=== PATIENT | female | born 1950 | race African-American/Black ===

== ENCOUNTER → 2017-09-12 | Outpatient (CLI) | payer MEDICARE, OTHER ==
--- NOTE | 2017-09-16 11:36 | WOMENS IMAGING REPORT ---
EXAM DESCRIPTION: 3D SCREENING MAMMO BILAT COMPLETED DATE/TIME: 09/12/2017 3:32 pm REASON FOR STUDY: SCREENING MAMMO Z12.31 ENCNTR SCREEN MAMMOGRAM FOR MALIGNANT NEOPLASM OF SOLA COMPARISON: The patient's outside examination is not available at this reading. TECHNIQUE: Standard craniocaudal and mediolateral oblique views of each breast recorded using digita l acquisition and breast tomosynthesis. LIMITATIONS: None. FINDINGS: Findings present which are benign by mammographic criteria. No suspicious masses, calcifi cations or architectural distortion. Pertinent benign findings: Post surgical changes related to prior bilateral breast reduction surgery . Benign-appearing calcifications in the breast. Read with the assistance of CAD. .[facility] - R2 Cenova Version 1.3 .[facility] - R2 Cenova Version 1.3 .[facility] - R2 Cenova Version 2.4 .[facility] - R2 Cenova Version 2.4 .[facility] - R2 Mortgage Loan Specialist Version 9.2 Benign mammographic findings may include one or more of the following: Smooth masses, popcorn/rim/co arse calcifications, asymmetries, post-procedure changes, and lesions with long-standing stability. IMPRESSION: BENIGN MAMMOGRAPHIC FINDINGS. BIRADS 2 BREAST DENSITY: b. There are scattered areas of fibroglandular density. BIRAD: 2 BENIGN FINDING(S) RECOMMENDATION: RECOMMENDATION: ROUTINE SCREENING COMMENT: The patient has been notified of the results by letter per SA requirements. Additional no tification policies are in place for contacting patient with suspicious or incomplete findings. Quality ID #[id number]: The [employer] recommends an annual screening mammogram for women aged 40 years or over. This facility utilizes a reminder system to ensure that all patients receive reminder letters, and/or direct phone calls for appointments. This includes reminders for routine scr eening mammograms, diagnostic mammograms, or other Breast Imaging Interventions when appropriate. Th is patient will be placed in the appropriate reminder system. The [employer] (ACR) has developed recommendations for screening MRI of the breast s in certain patient populations, to be used in conjunction with mammography. Breast MRI surveillanc e may be appropriate for women with more than 20% lifetime risk of developing breast cancer as deter mined by genetic testing, significant family history of the disease, or history of mantle radiation f or Hodgkins Disease. ACR Practice Guidelines 2008. DBT Technology DBT is a type of tomographic mammography. With conventional mammography, overlapping breast tissue ma y make lesions difficult to detect, even with good compression. DBT uses an x-ray tube that rotates a round the breast, taking images at different angles. These images are then combined to create thin sl ices of the breast that the radiologist can view as a 3D reconstruction. The [employer] unit can perform full-field digital mammograms (2D imaging); or DBT (3D imaging); or both, in a combination mode that quickly performs both the mammogram and the tomosynthesis scan while the breast is still compressed. PQRS 6045F: Fluoroscopic imaging is not utilized for breast tomosynthesis. TECHNICAL DOCUMENTATION: FINDING NUMBER: (1) ASSESSMENT: (1) JOB ID: [id number] [employer]- All Rights Reserved Reading location - IP/workstation name: [email or web address]
== END ==
LOC: WI 14:36
PROVIDERS: ATTEND Obstetrics & Gynecology
DX: Z12.31 Encounter for screening mammogram for malignant neoplasm of breast (principal)
CPT/HCPCS: 77063; 77067

== ENCOUNTER → 2018-06-19 | Day surgery (SDC) | payer MEDICARE, OTHER ==
[~2018-06-19] MED LIST: BUPIVACAINE HCL 0.5 % INJ/PF 30 ML SDV ONE; LIDOCAINE 1% INJ-PF (10 MG/ML) 30 ML SDV ONE
--- NOTE | 2018-06-19 10:42 | Operative Report ---
PROCEDURE: 1. Right articular branch of femoral nerve radiofrequency denervation 2. Right articular branch of obturator nerve radiofrequency denervation Preoperative Diagnosis: Right osteoarthritis Hip Postoperative Diagnosis: Right osteoarthritis Hip DATE OF PROCEDURE: June 19, 2018 ANESTHESIA: Local anesthesia COMPLICATIONS: none reported PROCEDURE IN DETAIL: Hx/PE/meds/allergies/applicable labs reviewed. No changes and no contraindications were found. Full description of the procedure was provided including benefits as well as possible complications including transient increased pain, stomach irritation, mood alteration, transient weakness or parathesias as well as more serious nerve injury, bleeding, infection or allergic reaction. Informed consent was obtained and documented. The patient was brought to the procedure room and placed on the exam table in a comfortable supine position. The place for the needle placement was obtained by manual palpation with radiographic confirmation. The sterile field was prepared and sterile drapes. Local anesthesia superficial and deep was provided by local infiltration of 6 ml 1 % lidocaine. Using fluoroscopic guidance a 17g 150 mm radiofrequency needle with 4mm active tip was advanced to the anteromedial aspect of the extraarticular portion of the hip joint where the articular branch of the femoral nerve traverses until a bony endpoint is felt. Attempted aspiration yielded no blood. Motor testing was then performed with 2hz at 2 volts and no lower extremity motor stimulation was observed. 2 cc of .5 % marcaine was injected through the RF needle. A radiofrequency lesion of the articular branch of the femoral nerve was then performed at 80 degrees C for 2 min and 30 seconds. The needle was then withdrawn. A second needle was placed and using fluoroscopic confirmation with ULTRASOUND guidance the needle was advanced to the incisura of the acetabulum where the articular branch of the obturator nerve traverses until a bony endpoint was met. Attempted aspiration yielded no blood. Radiographs were made. Motor testing was then performed with 2hz at 2 volts and no lower extremity motor stimulation was observed. 2cc .5 % marcaine was injected through the RF needle. A radiofrequency lesion of the articular branch of the obturator nerve was then performed at 80 degrees C for 2 minutes and 30 seconds. The needle was then withdrawn. The patient tolerated the procedure well. After observation the patient was discharged with instructions and follow up. They were also provided contact information to call regarding any concerning symptoms or questions. IMPRESSION: 1. Successful radiofrequency ablations of the articular branches of the obturator and femoral nerves was performed. 2. Follow up in 1-2 weeks to assess the efficacy of the procedure. 3. Estimated Blood Loss: 0 4. Disposition: home
== END ==
LOC: RAD 10:33
PROVIDERS: ATTEND Family Medicine
DX: M16.11 Unilateral primary osteoarthritis, right hip (principal)
CPT/HCPCS: 64640 ×2; J3490 ×2

== ENCOUNTER → 2018-08-08 | Outpatient (CLI) | payer MEDICARE, OTHER | LOC: OD 09:43 | PROVIDERS: ATTEND Internal Medicine Nephrology | DX: N39.0 Urinary tract infection, site not specified (principal) | CPT/HCPCS: 87086; 87088; 87186 ==

== ENCOUNTER → 2018-10-02 | Outpatient (CLI) | payer MEDICARE, OTHER ==
--- NOTE | 2018-10-06 16:41 | WOMENS IMAGING REPORT ---
EXAM DESCRIPTION: BILAT DIAGNOSTIC MAMMO W/CAD; U/S BREAST UNILAT LIMITED COMPLETED DATE/TIME: 10/02/2018 12:39 pm; 10/02/2018 1:08 pm; 10/06/2018 8:45 am REASON FOR STUDY: N64.4 MASTODYNIA; RT BREAST PAIN,N64.4; LEFT BREAST U/S N64.4 MASTODYNIA COMPARISON: 2017 TECHNIQUE: Standard craniocaudal and mediolateral oblique views of each breast recorded using digita l acquisition and breast tomosynthesis. True lateral and cone compression views left breast. True lateral view right breast. LIMITATIONS: None. FINDINGS: RIGHT BREAST MASSES: No suspicious masses. CALCIFICATIONS: No new or suspicious calcifications. ARCHITECTURAL DISTORTION: None. DEVELOPING DENSITY: None. ASYMMETRY: None noted. OTHER: No other significant findings. LEFT BREAST MASSES: No suspicious masses. CALCIFICATIONS: No new or suspicious calcifications. ARCHITECTURAL DISTORTION: Architectural distortion compresses out. DEVELOPING DENSITY: None. ASYMMETRY: None noted. OTHER: No other significant finding. Read with the assistance of CAD: .[facility] - R2 Cenova Version 1.3 .[facility] Imaging - R2 Cenova Version 2.1 .[facility] Imaging - R2 Cenova Version 2.4 .[facility] - R2 Cenova Version 2.4 .[facility] - R2 Class C Truck Driver Version 9.2 Ultrasound of both breasts was performed. No significant abnormality in either breast. IMPRESSION: No evidence of malignancy. BREAST DENSITY: b. There are scattered areas of fibroglandular density. BIRAD: 2 Benign findings. RECOMMENDATION: RECOMMENDED FOLLOW UP: Birads 1 or 2: No breast imaging finding to explain the patie nt's presenting complaint. Further intervention should be based on the degree of clinical suspicion. SPECIFIC INTERVENTION/IMAGING/CONSULTATION RECOMMENDED:No additional intervention/ imaging/consultati on needed at this time. COMMUNICATION:The imaging findings were not discussed with the patient. Her referring provider has be en notified of the findings. COMMENT: The patient has been notified of the results by letter per MQSA requirements. Additional no tification policies are in place for contacting patient with suspicious or incomplete findings. Quality ID #225: The [employer] recommends an annual screening mammogram for women aged 40 years or over. This facility utilizes a reminder system to ensure that all patients receive reminder letters, and/or direct phone calls for appointments. This includes reminders for routine scr eening mammograms, diagnostic mammograms, or other Breast Imaging Interventions when appropriate. Th is patient will be placed in the appropriate reminder system. The [employer] (ACR) has developed recommendations for screening MRI of the breast s in certain patient populations, to be used in conjunction with mammography. Breast MRI surveillanc e may be appropriate for women with more than 20% lifetime risk of developing breast cancer as deter mined by genetic testing, significant family history of the disease, or history of mantle radiation f or Hodgkins Disease. ACR Practice Guidelines 2008. DBT Technology DBT is a type of tomographic mammography. With conventional mammography, overlapping breast tissue ma y make lesions difficult to detect, even with good compression. DBT uses an x-ray tube that rotates a round the breast, taking images at different angles. These images are then combined to create thin sl ices of the breast that the radiologist can view as a 3D reconstruction. The [employer] unit can perform full-field digital mammograms (2D imaging); or DBT (3D imaging); or both, in a combination mode that quickly performs both the mammogram and the tomosynthesis scan while the breast is still compressed. PQRS 6045F: Fluoroscopic imaging is not utilized for breast tomosynthesis. TECHNICAL DOCUMENTATION: FINDING NUMBER: (1) ASSESSMENT: (1) JOB ID: [id number] [employer]- All Rights Reserved Reading location - IP/workstation name: [email or web address]
--- NOTE | 2018-10-06 16:41 | WOMENS IMAGING REPORT ---
EXAM DESCRIPTION: BILAT DIAGNOSTIC MAMMO W/CAD; U/S BREAST UNILAT LIMITED COMPLETED DATE/TIME: 10/02/2018 12:39 pm; 10/02/2018 1:08 pm; 10/06/2018 8:45 am REASON FOR STUDY: N64.4 MASTODYNIA; RT BREAST PAIN,N64.4; LEFT BREAST U/S N64.4 MASTODYNIA COMPARISON: 2017 TECHNIQUE: Standard craniocaudal and mediolateral oblique views of each breast recorded using digita l acquisition and breast tomosynthesis. True lateral and cone compression views left breast. True lateral view right breast. LIMITATIONS: None. FINDINGS: RIGHT BREAST MASSES: No suspicious masses. CALCIFICATIONS: No new or suspicious calcifications. ARCHITECTURAL DISTORTION: None. DEVELOPING DENSITY: None. ASYMMETRY: None noted. OTHER: No other significant findings. LEFT BREAST MASSES: No suspicious masses. CALCIFICATIONS: No new or suspicious calcifications. ARCHITECTURAL DISTORTION: Architectural distortion compresses out. DEVELOPING DENSITY: None. ASYMMETRY: None noted. OTHER: No other significant finding. Read with the assistance of CAD: .[facility] - R2 Cenova Version 1.3 .[facility] Imaging - R2 Cenova Version 2.1 .[facility] Imaging - R2 Cenova Version 2.4 .[facility] - R2 Cenova Version 2.4 .[facility] - R2 Child Care Specialist Version 9.2 Ultrasound of both breasts was performed. No significant abnormality in either breast. IMPRESSION: No evidence of malignancy. BREAST DENSITY: b. There are scattered areas of fibroglandular density. BIRAD: 2 Benign findings. RECOMMENDATION: RECOMMENDED FOLLOW UP: Birads 1 or 2: No breast imaging finding to explain the patie nt's presenting complaint. Further intervention should be based on the degree of clinical suspicion. SPECIFIC INTERVENTION/IMAGING/CONSULTATION RECOMMENDED:No additional intervention/ imaging/consultati on needed at this time. COMMUNICATION:The imaging findings were not discussed with the patient. Her referring provider has be en notified of the findings. COMMENT: The patient has been notified of the results by letter per MQSA requirements. Additional no tification policies are in place for contacting patient with suspicious or incomplete findings. Quality ID #225: The [employer] recommends an annual screening mammogram for women aged 40 years or over. This facility utilizes a reminder system to ensure that all patients receive reminder letters, and/or direct phone calls for appointments. This includes reminders for routine scr eening mammograms, diagnostic mammograms, or other Breast Imaging Interventions when appropriate. Th is patient will be placed in the appropriate reminder system. The [employer] (ACR) has developed recommendations for screening MRI of the breast s in certain patient populations, to be used in conjunction with mammography. Breast MRI surveillanc e may be appropriate for women with more than 20% lifetime risk of developing breast cancer as deter mined by genetic testing, significant family history of the disease, or history of mantle radiation f or Hodgkins Disease. ACR Practice Guidelines 2008. DBT Technology DBT is a type of tomographic mammography. With conventional mammography, overlapping breast tissue ma y make lesions difficult to detect, even with good compression. DBT uses an x-ray tube that rotates a round the breast, taking images at different angles. These images are then combined to create thin sl ices of the breast that the radiologist can view as a 3D reconstruction. The [employer] unit can perform full-field digital mammograms (2D imaging); or DBT (3D imaging); or both, in a combination mode that quickly performs both the mammogram and the tomosynthesis scan while the breast is still compressed. PQRS 6045F: Fluoroscopic imaging is not utilized for breast tomosynthesis. TECHNICAL DOCUMENTATION: FINDING NUMBER: (1) ASSESSMENT: (1) JOB ID: [id number] [employer]- All Rights Reserved Reading location - IP/workstation name: [email or web address]
--- NOTE | 2018-10-06 16:41 | WOMENS IMAGING REPORT ---
EXAM DESCRIPTION: BILAT DIAGNOSTIC MAMMO W/CAD; U/S BREAST UNILAT LIMITED COMPLETED DATE/TIME: 10/02/2018 12:39 pm; 10/02/2018 1:08 pm; 10/06/2018 8:45 am REASON FOR STUDY: N64.4 MASTODYNIA; RT BREAST PAIN,N64.4; LEFT BREAST U/S N64.4 MASTODYNIA COMPARISON: 2017 TECHNIQUE: Standard craniocaudal and mediolateral oblique views of each breast recorded using digita l acquisition and breast tomosynthesis. True lateral and cone compression views left breast. True lateral view right breast. LIMITATIONS: None. FINDINGS: RIGHT BREAST MASSES: No suspicious masses. CALCIFICATIONS: No new or suspicious calcifications. ARCHITECTURAL DISTORTION: None. DEVELOPING DENSITY: None. ASYMMETRY: None noted. OTHER: No other significant findings. LEFT BREAST MASSES: No suspicious masses. CALCIFICATIONS: No new or suspicious calcifications. ARCHITECTURAL DISTORTION: Architectural distortion compresses out. DEVELOPING DENSITY: None. ASYMMETRY: None noted. OTHER: No other significant finding. Read with the assistance of CAD: .[facility] - R2 Cenova Version 1.3 .[facility] Imaging - R2 Cenova Version 2.1 .[facility] Imaging - R2 Cenova Version 2.4 .[facility] - R2 Cenova Version 2.4 .[facility] - R2 Piping Drafter Version 9.2 Ultrasound of both breasts was performed. No significant abnormality in either breast. IMPRESSION: No evidence of malignancy. BREAST DENSITY: b. There are scattered areas of fibroglandular density. BIRAD: 2 Benign findings. RECOMMENDATION: RECOMMENDED FOLLOW UP: Birads 1 or 2: No breast imaging finding to explain the patie nt's presenting complaint. Further intervention should be based on the degree of clinical suspicion. SPECIFIC INTERVENTION/IMAGING/CONSULTATION RECOMMENDED:No additional intervention/ imaging/consultati on needed at this time. COMMUNICATION:The imaging findings were not discussed with the patient. Her referring provider has be en notified of the findings. COMMENT: The patient has been notified of the results by letter per MQSA requirements. Additional no tification policies are in place for contacting patient with suspicious or incomplete findings. Quality ID #225: The [employer] recommends an annual screening mammogram for women aged 40 years or over. This facility utilizes a reminder system to ensure that all patients receive reminder letters, and/or direct phone calls for appointments. This includes reminders for routine scr eening mammograms, diagnostic mammograms, or other Breast Imaging Interventions when appropriate. Th is patient will be placed in the appropriate reminder system. The [employer] (ACR) has developed recommendations for screening MRI of the breast s in certain patient populations, to be used in conjunction with mammography. Breast MRI surveillanc e may be appropriate for women with more than 20% lifetime risk of developing breast cancer as deter mined by genetic testing, significant family history of the disease, or history of mantle radiation f or Hodgkins Disease. ACR Practice Guidelines 2008. DBT Technology DBT is a type of tomographic mammography. With conventional mammography, overlapping breast tissue ma y make lesions difficult to detect, even with good compression. DBT uses an x-ray tube that rotates a round the breast, taking images at different angles. These images are then combined to create thin sl ices of the breast that the radiologist can view as a 3D reconstruction. The [employer] unit can perform full-field digital mammograms (2D imaging); or DBT (3D imaging); or both, in a combination mode that quickly performs both the mammogram and the tomosynthesis scan while the breast is still compressed. PQRS 6045F: Fluoroscopic imaging is not utilized for breast tomosynthesis. TECHNICAL DOCUMENTATION: FINDING NUMBER: (1) ASSESSMENT: (1) JOB ID: [id number] [employer]- All Rights Reserved Reading location - IP/workstation name: [email or web address]
== END ==
LOC: WI 12:20
PROVIDERS: ATTEND Obstetrics & Gynecology
DX: N64.4 Mastodynia (principal)
CPT/HCPCS: 76642; 77066

== ENCOUNTER → 2018-10-10 | Outpatient (CLI) | payer MEDICARE, OTHER ==
[2018-10-10 13:32] LABS: HEMATOCRIT 30.8 % (36.0-47.0); HEMOGLOBIN 10.4 g/dL (12.0-15.5); MEAN CORPUSCULAR HEMOGLOBIN 32.2 pg (27.0-33.4); MEAN CORPUSCULAR HGB CONC 33.8 g/dL (32.0-36.0); MEAN CORPUSCULAR VOLUME 95 fl (80-97); PLATELET COUNT 213 10^3/uL (150-450); RED BLOOD COUNT 3.23 10^6/uL (3.72-5.28); RED CELL DISTRIBUTION WIDTH 13.4 % (11.5-14.0); WHITE BLOOD COUNT 4.8 10^3/uL (4.0-10.5)
== END ==
LOC: OD 12:44
PROVIDERS: ATTEND Internal Medicine Nephrology
DX: N18.9 Chronic kidney disease, unspecified (principal); D63.1 Anemia in chronic kidney disease
CPT/HCPCS: 36415; 85027

== ENCOUNTER → 2018-11-19 | Outpatient (CLI) | payer MEDICARE, OTHER | LOC: OD 08:58 | PROVIDERS: ATTEND Internal Medicine Nephrology | DX: N18.3 Chronic kidney disease, stage 3 (moderate) (principal); E21.1 Secondary hyperparathyroidism, not elsewhere classified | CPT/HCPCS: 36415; 83970 ==

== ENCOUNTER → 2018-11-26 | Outpatient (CLI) | payer MEDICARE, OTHER ==
--- NOTE | 2018-11-26 15:46 | RADIOLOGY REPORT (SQ) ---
EXAM DESCRIPTION: NM PARATHYROID IMAGING COMPLETED DATE/TIME: 11/26/2018 3:14 pm REASON FOR STUDY: E21.3 HYPERPARATHYROIDISM, UNSPECIFIED E21.3 HYPERPARATHYROIDISM, UNSPECIFIED COMPARISON: None. RADIONUCLIDE AND DOSE: 21 millicuries Tc-99m Sestamibi. The route of agent administration: Intravenous ADDITIONAL DRUGS AND DOSES: None. TECHNIQUE: Early and delayed images of the neck acquired following radionuclide administration. LIMITATIONS: None. FINDINGS: Thyroid: Normal size. Homogeneous activity. Normal washout. No focal lesions. Parathyroid: No retained activity in the thyroid or elsewhere in the neck to indicate a parathyroid a denoma. Other: No other significant findings. IMPRESSION: NORMAL STUDY. NO EVIDENCE OF PARATHYROID ADENOMA. TECHNICAL DOCUMENTATION: JOB ID: [id number] [employer]- All Rights Reserved Reading location - IP/workstation name: [email or web address]
== END ==
LOC: RAD 11:18
PROVIDERS: ATTEND Internal Medicine Nephrology
DX: E21.3 Hyperparathyroidism, unspecified (principal); E11.9 Type 2 diabetes mellitus without complications; I25.10 Atherosclerotic heart disease of native coronary artery without angina pectoris
CPT/HCPCS: 78070; A9500; Q9969

== ENCOUNTER → 2019-02-26 | Outpatient (CLI) | payer MEDICARE, OTHER ==
[2019-02-26 07:48] LABS: ABSOLUTE EOSINOPHILS # (AUTO) 0.1 10^3/uL (0.0-0.6); ABSOLUTE LYMPHOCYTES (AUTO) 1.2 10^3/uL (0.5-4.7); ABSOLUTE MONOCYTES (AUTO) 0.4 10^3/uL (0.1-1.4); ABSOLUTE NEUT (AUTO) 2.5 10^3/uL (1.7-8.2); BASOPHILS % (AUTO) 0.7 % (0-2); EOSINOPHILS % (AUTO) 2.6 % (0-6); HEMATOCRIT 31.7 % (36.0-47.0); HEMOGLOBIN 10.6 g/dL (12.0-15.5); MEAN CORPUSCULAR HEMOGLOBIN 32.1 pg (27.0-33.4); MEAN CORPUSCULAR HGB CONC 33.4 g/dL (32.0-36.0); MEAN CORPUSCULAR VOLUME 96 fl (80-97); MONOCYTES % (AUTO) 8.5 % (3-13); PLATELET COUNT 216 10^3/uL (150-450); RED CELL DISTRIBUTION WIDTH 14.6 % (11.5-14.0); SEGMENTED NEUTROPHILS % (AUTO) 60.2 % (42-78); TOTAL CELLS COUNTED % (AUTO) 100 %; WHITE BLOOD COUNT 4.2 10^3/uL (4.0-10.5)
[2019-02-26 08:17] LABS: APPEARANCE,URINE CLEAR; BILIRUBIN,URINE NEGATIVE (NEGATIVE); COLOR,URINE YELLOW; GLUCOSE, URINE NEGATIVE (NEGATIVE); KETONES,URINE NEGATIVE (NEGATIVE); LEUKOCYTE ESTERASE,URINE NEGATIVE (NEGATIVE); NITRITE,URINE NEGATIVE (NEGATIVE); PROTEIN,URINE NEGATIVE (NEGATIVE); URINE SPECIFIC GRAVITY 1.014; UROBILINOGEN,URINE NEGATIVE mg/dL (<2.0)
[2019-02-26 08:18] LABS: ADD MANUAL MICROSCOPIC YES
[2019-02-26 08:28] LABS: ANION GAP 5 (5-19); BLOOD UREA NITROGEN 27 mg/dL (7-20); CALCIUM 9.6 mg/dL (8.4-10.2); CARBON DIOXIDE 28 mmol/L (22-30); CHLORIDE 106 mmol/L (98-107); GLUCOSE 126 mg/dL (75-110); IRON(TIBC) 70.5 ug/dL (37-170); PHOSPHORUS 3.5 mg/dL (2.5-4.5); POTASSIUM 5.1 mmol/L (3.6-5.0)
[2019-02-26 09:04] LABS: BACTERIA,URINE TRACE /HPF; WBC,URINE RARE /HPF
[2019-02-27 10:36] LABS: CREATININE URINE 124.8 mg/dL (Not Estab.); MICROALBUMIN URINE 3.2 ug/mL (Not Estab.)
== END ==
LOC: OD 07:14
PROVIDERS: ATTEND Internal Medicine Nephrology
DX: N18.3 Chronic kidney disease, stage 3 (moderate) (principal); D63.1 Anemia in chronic kidney disease; I12.9 Hypertensive chronic kidney disease with stage 1 through stage 4 chronic kidney disease, or unspecified chronic kidney disease
CPT/HCPCS: 36415; 80069; 81001; 82043; 82306; 82570; 82728; 83540; 83550; 85025

== ENCOUNTER → 2019-05-27 | Outpatient (CLI) | payer MEDICARE, OTHER ==
[2019-05-27 09:00] LABS: ABSOLUTE EOSINOPHILS # (AUTO) 0.1 10^3/uL (0.0-0.6); ABSOLUTE LYMPHOCYTES (AUTO) 0.8 10^3/uL (0.5-4.7); ABSOLUTE MONOCYTES (AUTO) 0.3 10^3/uL (0.1-1.4); ABSOLUTE NEUT (AUTO) 2.2 10^3/uL (1.7-8.2); BASOPHILS % (AUTO) 1.2 % (0-2); EOSINOPHILS % (AUTO) 2.1 % (0-6); HEMATOCRIT 32.2 % (36.0-47.0); HEMOGLOBIN 10.9 g/dL (12.0-15.5); LYMPHOCYTES % (AUTO) 23.8 % (13-45); MEAN CORPUSCULAR HEMOGLOBIN 33.4 pg (27.0-33.4); MEAN CORPUSCULAR HGB CONC 33.9 g/dL (32.0-36.0); MEAN CORPUSCULAR VOLUME 99 fl (80-97); MONOCYTES % (AUTO) 9.2 % (3-13); PLATELET COUNT 229 10^3/uL (150-450); RED BLOOD COUNT 3.26 10^6/uL (3.72-5.28); RED CELL DISTRIBUTION WIDTH 14.4 % (11.5-14.0); SEGMENTED NEUTROPHILS % (AUTO) 63.7 % (42-78); TOTAL CELLS COUNTED % (AUTO) 100 %; WHITE BLOOD COUNT 3.5 10^3/uL (4.0-10.5)
[2019-05-27 09:11] LABS: ANION GAP 10 (5-19); BLOOD UREA NITROGEN 20 mg/dL (7-20); CALCIUM 9.8 mg/dL (8.4-10.2); CARBON DIOXIDE 25 mmol/L (22-30); CHLORIDE 108 mmol/L (98-107); GLUCOSE 108 mg/dL (75-110); POTASSIUM 4.7 mmol/L (3.6-5.0)
== END ==
LOC: OD 08:27
PROVIDERS: ATTEND Internal Medicine Nephrology
DX: E11.22 Type 2 diabetes mellitus with diabetic chronic kidney disease (principal); I12.9 Hypertensive chronic kidney disease with stage 1 through stage 4 chronic kidney disease, or unspecified chronic kidney disease; N18.3 Chronic kidney disease, stage 3 (moderate); D63.1 Anemia in chronic kidney disease; N25.81 Secondary hyperparathyroidism of renal origin
CPT/HCPCS: 36415; 80048; 83970; 85025

== ENCOUNTER → 2019-12-09 | Outpatient (CLI) | payer MEDICARE, OTHER ==
[2019-12-09 07:56] LABS: APPEARANCE,URINE CLEAR; BILIRUBIN,URINE NEGATIVE (NEGATIVE); COLOR,URINE YELLOW; GLUCOSE, URINE >=500 mg/dL (NEGATIVE); KETONES,URINE NEGATIVE (NEGATIVE); LEUKOCYTE ESTERASE,URINE TRACE (NEGATIVE); NITRITE,URINE NEGATIVE (NEGATIVE); PROTEIN,URINE NEGATIVE (NEGATIVE); URINE SPECIFIC GRAVITY 1.013; UROBILINOGEN,URINE NEGATIVE mg/dL (<2.0)
[2019-12-09 07:58] LABS: ABSOLUTE EOSINOPHILS # (AUTO) 0.1 10^3/uL (0.0-0.6); ABSOLUTE LYMPHOCYTES (AUTO) 1.4 10^3/uL (0.5-4.7); ABSOLUTE MONOCYTES (AUTO) 0.4 10^3/uL (0.1-1.4); ABSOLUTE NEUT (AUTO) 2.6 10^3/uL (1.7-8.2); BASOPHILS % (AUTO) 0.7 % (0-2); EOSINOPHILS % (AUTO) 2.2 % (0-6); HEMATOCRIT 31.8 % (36.0-47.0); HEMOGLOBIN 10.8 g/dL (12.0-15.5); LYMPHOCYTES % (AUTO) 30.9 % (13-45); MEAN CORPUSCULAR HEMOGLOBIN 33.3 pg (27.0-33.4); MEAN CORPUSCULAR VOLUME 98 fl (80-97); MONOCYTES % (AUTO) 8.5 % (3-13); PLATELET COUNT 233 10^3/uL (150-450); RED BLOOD COUNT 3.25 10^6/uL (3.72-5.28); RED CELL DISTRIBUTION WIDTH 14.8 % (11.5-14.0); SEGMENTED NEUTROPHILS % (AUTO) 57.7 % (42-78); TOTAL CELLS COUNTED % (AUTO) 100 %; WHITE BLOOD COUNT 4.5 10^3/uL (4.0-10.5)
[2019-12-09 08:09] LABS: ALBUMIN 4.1 g/dL (3.5-5.0); ANION GAP 7 (5-19); BLOOD UREA NITROGEN 22 mg/dL (7-20); CALCIUM 9.4 mg/dL (8.4-10.2); CARBON DIOXIDE 27 mmol/L (22-30); CHLORIDE 104 mmol/L (98-107); GLUCOSE 122 mg/dL (75-110); PHOSPHORUS 3.2 mg/dL (2.5-4.5); POTASSIUM 4.2 mmol/L (3.6-5.0)
[2019-12-10 10:36] LABS: CREATININE URINE 98.6 mg/dL (Not Estab.)
[2019-12-10 10:38] LABS: MICROALBUMIN URINE <3.0 ug/mL (Not Estab.)
== END ==
LOC: OD 07:19
PROVIDERS: ATTEND Internal Medicine Nephrology
DX: I12.9 Hypertensive chronic kidney disease with stage 1 through stage 4 chronic kidney disease, or unspecified chronic kidney disease (principal); N18.3 Chronic kidney disease, stage 3 (moderate); E11.22 Type 2 diabetes mellitus with diabetic chronic kidney disease; D63.1 Anemia in chronic kidney disease; N25.81 Secondary hyperparathyroidism of renal origin
CPT/HCPCS: 36415; 80069; 81001; 82043; 82306; 82570; 83970; 85025

== ENCOUNTER → 2020-06-29 | Outpatient (CLI) | payer MEDICARE, OTHER ==
--- NOTE | 2020-06-29 11:01 | WOMENS IMAGING REPORT ---
EXAM DESCRIPTION: 3D DX MAMMO BILAT; U/S BREAST UNILAT LIMITED IMAGES COMPLETED DATE/TIME: 06/29/2020 9:53 am; 06/29/2020 10:48 am REASON FOR STUDY: N64.4 MASTODYNIA; LT BREAST N64.4; RT N64.4 N64.4 MASTODYNIA Non bloody Right nipple discharge, bilateral breast pain. COMPARISON: 2017, 2018, 2019 EXAM PARAMETERS: Standard craniocaudal and mediolateral oblique views of each breast recorded using digital acquisition and breast tomosynthesis. Additional right breast 90 mediolateral view Bilateral breast ultrasound was also performed. Read with the assistance of CAD: .[employer] Pump Operator Version 9.2 LIMITATIONS: None. FINDINGS: RIGHT BREAST MASSES: No suspicious masses. CALCIFICATIONS: No new or suspicious calcifications. ARCHITECTURAL DISTORTION: None. ASYMMETRY: None noted. OTHER: No other significant findings. LEFT BREAST MASSES: No suspicious masses. CALCIFICATIONS: No new or suspicious calcifications. ARCHITECTURAL DISTORTION: None. ASYMMETRY: None noted. OTHER: No other significant finding. Bilateral breast ultrasound: Ultrasound of the right breast retroareolar region was performed. Patient gives a history of non blo diane whitish nipple discharge. Ultrasound of the right retroareolar region demonstrates no dilated du cts. No cysts. No masses. No focal findings. No worrisome acoustic absorption On the left side, patient describes pain in the upper outer quadrant. Ultrasound of the left breast upper outer quadrant yields no focal findings. No cysts. No masses. No worrisome acoustic absorpti on IMPRESSION: No mammographic or sonographic evidence for malignancy bilaterally BREAST DENSITY: b. There are scattered areas of fibroglandular density. BIRAD: ASSESSMENT: 2 Benign findings. RECOMMENDATION: RECOMMENDED FOLLOW UP: Please continue yearly bilateral screening mammography/ tomos ynthesis in June 2021 SPECIFIC INTERVENTION/IMAGING/CONSULTATION RECOMMENDED:No additional intervention/ imaging/consultati on needed at this time. COMMUNICATION:Patient notified at the time of encounter COMMENT: The patient has been notified of the results by letter per MQSA requirements. Additional no tification policies are in place for contacting patient with suspicious or incomplete findings. Quality ID #225: The [employer] recommends an annual screening mammogram for women aged 40 years or over. This facility utilizes a reminder system to ensure that all patients receive reminder letters, and/or direct phone calls for appointments. This includes reminders for routine scr eening mammograms, diagnostic mammograms, or other Breast Imaging Interventions when appropriate. Th is patient will be placed in the appropriate reminder system. TECHNICAL DOCUMENTATION: FINDING NUMBER: (1) ASSESSMENT: (1) JOB ID: [id number] [employer]- All Rights Reserved Reading location - IP/workstation name: [email or web address]
--- NOTE | 2020-06-29 11:01 | WOMENS IMAGING REPORT ---
EXAM DESCRIPTION: 3D DX MAMMO BILAT; U/S BREAST UNILAT LIMITED IMAGES COMPLETED DATE/TIME: 06/29/2020 9:53 am; 06/29/2020 10:48 am REASON FOR STUDY: N64.4 MASTODYNIA; LT BREAST N64.4; RT N64.4 N64.4 MASTODYNIA Non bloody Right nipple discharge, bilateral breast pain. COMPARISON: 2017, 2018, 2019 EXAM PARAMETERS: Standard craniocaudal and mediolateral oblique views of each breast recorded using digital acquisition and breast tomosynthesis. Additional right breast 90 mediolateral view Bilateral breast ultrasound was also performed. Read with the assistance of CAD: .[email or web address] - [employer] Version 9.2 LIMITATIONS: None. FINDINGS: RIGHT BREAST MASSES: No suspicious masses. CALCIFICATIONS: No new or suspicious calcifications. ARCHITECTURAL DISTORTION: None. ASYMMETRY: None noted. OTHER: No other significant findings. LEFT BREAST MASSES: No suspicious masses. CALCIFICATIONS: No new or suspicious calcifications. ARCHITECTURAL DISTORTION: None. ASYMMETRY: None noted. OTHER: No other significant finding. Bilateral breast ultrasound: Ultrasound of the right breast retroareolar region was performed. Patient gives a history of non blo diane whitish nipple discharge. Ultrasound of the right retroareolar region demonstrates no dilated du cts. No cysts. No masses. No focal findings. No worrisome acoustic absorption On the left side, patient describes pain in the upper outer quadrant. Ultrasound of the left breast upper outer quadrant yields no focal findings. No cysts. No masses. No worrisome acoustic absorpti on IMPRESSION: No mammographic or sonographic evidence for malignancy bilaterally BREAST DENSITY: b. There are scattered areas of fibroglandular density. BIRAD: ASSESSMENT: 2 Benign findings. RECOMMENDATION: RECOMMENDED FOLLOW UP: Please continue yearly bilateral screening mammography/ tomos ynthesis in June 2021 SPECIFIC INTERVENTION/IMAGING/CONSULTATION RECOMMENDED:No additional intervention/ imaging/consultati on needed at this time. COMMUNICATION:Patient notified at the time of encounter COMMENT: The patient has been notified of the results by letter per MQSA requirements. Additional no tification policies are in place for contacting patient with suspicious or incomplete findings. Quality ID #[id number]: The [employer] recommends an annual screening mammogram for women aged 40 years or over. This facility utilizes a reminder system to ensure that all patients receive reminder letters, and/or direct phone calls for appointments. This includes reminders for routine scr eening mammograms, diagnostic mammograms, or other Breast Imaging Interventions when appropriate. Th is patient will be placed in the appropriate reminder system. TECHNICAL DOCUMENTATION: FINDING NUMBER: (1) ASSESSMENT: (1) JOB ID: [id number] 2010 [employer]- All Rights Reserved Reading location - IP/workstation name: [email or web address]
--- NOTE | 2020-06-29 11:01 | WOMENS IMAGING REPORT ---
EXAM DESCRIPTION: 3D DX MAMMO BILAT; U/S BREAST UNILAT LIMITED IMAGES COMPLETED DATE/TIME: 06/29/2020 9:53 am; 06/29/2020 10:48 am REASON FOR STUDY: N64.4 MASTODYNIA; LT BREAST N64.4; RT N64.4 N64.4 MASTODYNIA Non bloody Right nipple discharge, bilateral breast pain. COMPARISON: 2017, 2018, 2019 EXAM PARAMETERS: Standard craniocaudal and mediolateral oblique views of each breast recorded using digital acquisition and breast tomosynthesis. Additional right breast 90 mediolateral view Bilateral breast ultrasound was also performed. Read with the assistance of CAD: .[employer] Version 9.2 LIMITATIONS: None. FINDINGS: RIGHT BREAST MASSES: No suspicious masses. CALCIFICATIONS: No new or suspicious calcifications. ARCHITECTURAL DISTORTION: None. ASYMMETRY: None noted. OTHER: No other significant findings. LEFT BREAST MASSES: No suspicious masses. CALCIFICATIONS: No new or suspicious calcifications. ARCHITECTURAL DISTORTION: None. ASYMMETRY: None noted. OTHER: No other significant finding. Bilateral breast ultrasound: Ultrasound of the right breast retroareolar region was performed. Patient gives a history of non blo diane whitish nipple discharge. Ultrasound of the right retroareolar region demonstrates no dilated du cts. No cysts. No masses. No focal findings. No worrisome acoustic absorption On the left side, patient describes pain in the upper outer quadrant. Ultrasound of the left breast upper outer quadrant yields no focal findings. No cysts. No masses. No worrisome acoustic absorpti on IMPRESSION: No mammographic or sonographic evidence for malignancy bilaterally BREAST DENSITY: b. There are scattered areas of fibroglandular density. BIRAD: ASSESSMENT: 2 Benign findings. RECOMMENDATION: RECOMMENDED FOLLOW UP: Please continue yearly bilateral screening mammography/ tomos ynthesis in June 2021 SPECIFIC INTERVENTION/IMAGING/CONSULTATION RECOMMENDED:No additional intervention/ imaging/consultati on needed at this time. COMMUNICATION:Patient notified at the time of encounter COMMENT: The patient has been notified of the results by letter per MQSA requirements. Additional no tification policies are in place for contacting patient with suspicious or incomplete findings. Quality ID #225: The [employer] recommends an annual screening mammogram for women aged 40 years or over. This facility utilizes a reminder system to ensure that all patients receive reminder letters, and/or direct phone calls for appointments. This includes reminders for routine scr eening mammograms, diagnostic mammograms, or other Breast Imaging Interventions when appropriate. Th is patient will be placed in the appropriate reminder system. TECHNICAL DOCUMENTATION: FINDING NUMBER: (1) ASSESSMENT: (1) JOB ID: [id number] 2010 [employer]- All Rights Reserved Reading location - IP/workstation name: [email or web address]
== END ==
LOC: WI 09:33
PROVIDERS: ATTEND Nurse Practitioner Family
DX: N64.4 Mastodynia (principal); N64.52 Nipple discharge
CPT/HCPCS: 76642; 77066; G0279; 77062